=== PATIENT | female | born 1935 | race Two or more races ===

== ENCOUNTER 2017-09-22 10:49 | Inpatient (IN) | payer OTHER ==
[~2017-09-22] VITALS: Ht 170.2 cm; Wt 81.6 kg
[~2017-09-22 10:49] MED LIST: CARDURA1 MG; CARdura 2MG TABLET PO; CEFTIN250 MG/5 M PO; CEFUROXIME500 MG PO; CLONAZEPAM0.125 MG/T; COZAAR100 MG PO; FUROSEMIDE10 MG/M1 IV; FUROSEMIDE40 MG PO; HYZAAR 100/25 T1 TAB; ISORDIL10 MG; ISORDIL10 MG PO; LASIX20 MG; METOPROLOL ER-1 EACH; NEURONTIN300 MG PO; ORASEP SPRAY30 ML MM; ORPH100T PO; PANTOPRAZOLE SO40 MG PO; PRADAXA150 MG; PROTONIX20 MG; SEROQUEL25 MG PO; SPIRONOLACTONE25 MG PO; Synthroid PO; TOPROL XL25 M1 PO; ZOCOR 10 MG PO; ZOCOR5 MG
== END 2017-09-26 19:08 | disposition home or self-care (01) | DRG 683 ==
LOC: ER 10:49 → MEDI 19:41
PROC: BW28ZZZ Computerized Tomography (CT Scan) of Head (ICD-10-PCS; 2017-09-22)
PROC: 30233N1 Transfusion of Nonautologous Red Blood Cells into Peripheral Vein, Percutaneous Approach (ICD-10-PCS; principal; 2017-09-23)
PROC: B030ZZZ Magnetic Resonance Imaging (MRI) of Brain (ICD-10-PCS; 2017-09-23)
PROC: 4A00X4Z Measurement of Central Nervous Electrical Activity, External Approach (ICD-10-PCS; 2017-09-24)
DX: N17.8 Other acute kidney failure (principal); N39.0 Urinary tract infection, site not specified; I50.30 Unspecified diastolic (congestive) heart failure; I13.0 Hypertensive heart and chronic kidney disease with heart failure and stage 1 through stage 4 chronic kidney disease, or unspecified chronic kidney disease; E86.0 Dehydration; I27.29 Other secondary pulmonary hypertension; G25.2 Other specified forms of tremor; E11.22 Type 2 diabetes mellitus with diabetic chronic kidney disease; N18.1 Chronic kidney disease, stage 1; I48.0 Paroxysmal atrial fibrillation; R13.19 Other dysphagia; Z95.1 Presence of aortocoronary bypass graft; I25.2 Old myocardial infarction; D63.1 Anemia in chronic kidney disease; D69.59 Other secondary thrombocytopenia
CPT/HCPCS: 70544

== ENCOUNTER 2017-11-25 19:06 | Inpatient (IN) | payer OTHER ==
[~2017-11-25] VITALS: Ht 170.2 cm; Wt 81.6 kg
== END 2017-12-08 20:04 | disposition home or self-care (01) | DRG 871 ==
LOC: ER 19:06 → SEC-K 11-26 19:35 → SURH 11-28 03:18
DX: A41.51 Sepsis due to Escherichia coli [E. coli] (principal); I50.23 Acute on chronic systolic (congestive) heart failure; N39.0 Urinary tract infection, site not specified; I85.10 Secondary esophageal varices without bleeding; N17.8 Other acute kidney failure; B17.8 Other specified acute viral hepatitis; I48.0 Paroxysmal atrial fibrillation; E87.5 Hyperkalemia; Z95.1 Presence of aortocoronary bypass graft; Z74.01 Bed confinement status; I27.29 Other secondary pulmonary hypertension; I11.0 Hypertensive heart disease with heart failure

== ENCOUNTER 2018-05-03 10:30 | Emergency (ER) | payer OTHER ==
[~2018-05-03] VITALS: Ht 172.7 cm; Wt 90.7 kg
== END 2018-05-03 14:43 | disposition home or self-care (01) ==
LOC: ER 10:30
DX: S00.512A Abrasion of oral cavity, initial encounter (principal); K14.8 Other diseases of tongue; K76.89 Other specified diseases of liver; X58.XXXA Exposure to other specified factors, initial encounter; Y93.89 Activity, other specified; Y92.89 Other specified places as the place of occurrence of the external cause; Y99.8 Other external cause status

== ENCOUNTER 2018-10-09 10:54 | Emergency (ER) | payer OTHER ==
[~2018-10-09] VITALS: Ht 170.2 cm; Wt 93.4 kg
[2018-10-09] MEDS ORDERED: LACTULOSE20 GM/30 M PO (16:40)
[2018-10-09] MEDS ORDERED: KEFLEX500 MG PO (16:40)
[2018-10-09] MEDS ORDERED: CLOTRIMAZOLE15 GM TOP (16:40)
== END 2018-10-09 17:35 | disposition home or self-care (01) ==
LOC: ER 10:54
DX: L03.116 Cellulitis of left lower limb (principal); B35.4 Tinea corporis; R82.79 Other abnormal findings on microbiological examination of urine

== ENCOUNTER 2018-12-18 10:41 | Emergency (ER) | payer OTHER ==
[~2018-12-18] VITALS: Ht 172.7 cm; Wt 98.9 kg
[~2018-12-18 10:41] MED LIST changes: +CLOTRIMAZOLE15 GM TOP; +KEFLEX500 MG PO; +LACTULOSE20 GM/30 M PO
[2018-12-18] MEDS ORDERED: CELEBREX100 MG PO (17:39)
[2018-12-18] MEDS ORDERED: ULTRACET PO (17:39)
== END 2018-12-18 18:06 | disposition home or self-care (01) ==
LOC: ER 10:41
DX: S22.41XA Multiple fractures of ribs, right side, initial encounter for closed fracture (principal); S00.03XA Contusion of scalp, initial encounter; S40.011A Contusion of right shoulder, initial encounter; S19.89XA Other specified injuries of other specified part of neck, initial encounter; W18.09XA Striking against other object with subsequent fall, initial encounter; Y93.89 Activity, other specified; Y92.098 Other place in other non-institutional residence as the place of occurrence of the external cause; Y99.8 Other external cause status

== ENCOUNTER 2019-04-23 13:32 | Inpatient (IN) | payer OTHER ==
[~2019-04-23] VITALS: Ht 162.6 cm; Wt 90.7 kg
[~2019-04-23 13:32] MED LIST changes: +CELEBREX100 MG PO; +ULTRACET PO
[2019-04-23] MEDS ORDERED: COZAAR25 MG (13:47)
[2019-04-24] MEDS ORDERED: ELIQUIS2.5 MG PO (10:48)
[2019-04-24] MEDS ORDERED: ALDACTONE25 MG PO (10:49)
[2019-04-24] MEDS ORDERED: INDERAL LA80 MG PO (10:50)
[2019-04-24] MEDS ORDERED: COZAAR100 MG PO (10:52)
[2019-04-24] MEDS ORDERED: ISORDIL10 MG PO (10:52)
[2019-04-24] MEDS ORDERED: DOXAZOSIN MESYLA2 MG PO (10:53)
[2019-04-24] MEDS ORDERED: ZOCOR20 MG PO (10:53)
[2019-04-24] MEDS ORDERED: LEVOTHYROXINE25 MCG PO (10:54)
[2019-04-24] MEDS ORDERED: LASIX40 MG PO (10:54)
[2019-04-24] MEDS ORDERED: PROTONIX40 MG PO (10:55)
[2019-04-24] MEDS ORDERED: SEROQUEL25 MG PO (10:55)
[2019-04-24] MEDS ORDERED: CLONAZEPAM0.5 M1 (10:56)
[2019-04-24] MEDS ORDERED: PROCRIT20000 UNIT IM (10:56)
[2019-04-24] MEDS ORDERED: PNEU16DI2 (10:56)
== END 2019-05-01 15:20 | disposition home or self-care (01) | DRG 292 ==
LOC: ER 13:32 → ICU-2 04-24 11:28 → ICU 04-24 11:28 → MEDJ 04-26 20:06
PROVIDERS: ADMIT Specialist
PROC: B246ZZZ Ultrasonography of Right and Left Heart (ICD-10-PCS; principal; 2019-04-24)
PROC: 0T9B70Z Drainage of Bladder with Drainage Device, Via Natural or Artificial Opening (ICD-10-PCS; 2019-04-24)
PROC: BW40ZZZ Ultrasonography of Abdomen (ICD-10-PCS; 2019-04-25)
PROC: 4A12X4Z Monitoring of Cardiac Electrical Activity, External Approach (ICD-10-PCS; 2019-04-26)
DX: I11.0 Hypertensive heart disease with heart failure (principal); N17.8 Other acute kidney failure; D68.318 Other hemorrhagic disorder due to intrinsic circulating anticoagulants, antibodies, or inhibitors; L03.116 Cellulitis of left lower limb; J90 Pleural effusion, not elsewhere classified; I50.22 Chronic systolic (congestive) heart failure; E11.22 Type 2 diabetes mellitus with diabetic chronic kidney disease; I13.0 Hypertensive heart and chronic kidney disease with heart failure and stage 1 through stage 4 chronic kidney disease, or unspecified chronic kidney disease; N18.3 Chronic kidney disease, stage 3 (moderate); E03.8 Other specified hypothyroidism; I25.10 Atherosclerotic heart disease of native coronary artery without angina pectoris; E66.09 Other obesity due to excess calories; E87.5 Hyperkalemia; I48.2 Chronic atrial fibrillation; N39.8 Other specified disorders of urinary system; Z79.4 Long term (current) use of insulin; Z79.01 Long term (current) use of anticoagulants; B35.4 Tinea corporis; K76.89 Other specified diseases of liver

== ENCOUNTER 2019-05-08 17:12 | Inpatient (IN) | payer OTHER ==
[~2019-05-08] VITALS: Ht 170.2 cm; Wt 90.7 kg
[~2019-05-08 17:12] MED LIST changes: +ALDACTONE25 MG PO; +CLONAZEPAM0.5 M1; +COZAAR25 MG; +DOXAZOSIN MESYLA2 MG PO; +ELIQUIS2.5 MG PO; +INDERAL LA80 MG PO; +LASIX40 MG PO; +LEVOTHYROXINE25 MCG PO; +PNEU16DI2; +PROCRIT20000 UNIT IM; +PROTONIX40 MG PO; +ZOCOR20 MG PO
== END 2019-06-18 23:13 | disposition expired | DRG 189 ==
LOC: ER 17:12 → MEDJ 22:39
PROVIDERS: ADMIT Specialist
PROC: BW28ZZZ Computerized Tomography (CT Scan) of Head (ICD-10-PCS; 2019-05-08)
PROC: 4A033R1 Measurement of Arterial Saturation, Peripheral, Percutaneous Approach (ICD-10-PCS; 2019-05-08)
PROC: 0T9B70Z Drainage of Bladder with Drainage Device, Via Natural or Artificial Opening (ICD-10-PCS; 2019-05-08)
PROC: 4A12X4Z Monitoring of Cardiac Electrical Activity, External Approach (ICD-10-PCS; 2019-05-08)
PROC: 02HV33Z Insertion of Infusion Device into Superior Vena Cava, Percutaneous Approach (ICD-10-PCS; 2019-05-08)
PROC: 3E0F7GC Introduction of Other Therapeutic Substance into Respiratory Tract, Via Natural or Artificial Opening (ICD-10-PCS; 2019-05-09)
PROC: 5A09457 Assistance with Respiratory Ventilation, 24-96 Consecutive Hours, Continuous Positive Airway Pressure (ICD-10-PCS; 2019-05-09)
PROC: BT4JZZZ Ultrasonography of Kidneys and Bladder (ICD-10-PCS; 2019-05-09)
PROC: B246ZZZ Ultrasonography of Right and Left Heart (ICD-10-PCS; 2019-05-11)
PROC: 30233N1 Transfusion of Nonautologous Red Blood Cells into Peripheral Vein, Percutaneous Approach (ICD-10-PCS; 2019-05-11)
PROC: 0W9930Z Drainage of Right Pleural Cavity with Drainage Device, Percutaneous Approach (ICD-10-PCS; principal; 2019-05-21)
DX: J96.02 Acute respiratory failure with hypercapnia (principal); I50.33 Acute on chronic diastolic (congestive) heart failure; G93.41 Metabolic encephalopathy; A41.89 Other specified sepsis; I50.23 Acute on chronic systolic (congestive) heart failure; N39.0 Urinary tract infection, site not specified; I13.0 Hypertensive heart and chronic kidney disease with heart failure and stage 1 through stage 4 chronic kidney disease, or unspecified chronic kidney disease; D68.318 Other hemorrhagic disorder due to intrinsic circulating anticoagulants, antibodies, or inhibitors; J90 Pleural effusion, not elsewhere classified; N17.8 Other acute kidney failure; N18.4 Chronic kidney disease, stage 4 (severe); D68.4 Acquired coagulation factor deficiency; E87.2 Acidosis; I47.2 Ventricular tachycardia; J98.11 Atelectasis; N04.9 Nephrotic syndrome with unspecified morphologic changes; L03.116 Cellulitis of left lower limb; J96.01 Acute respiratory failure with hypoxia; I11.0 Hypertensive heart disease with heart failure; I48.2 Chronic atrial fibrillation; I08.3 Combined rheumatic disorders of mitral, aortic and tricuspid valves; E11.22 Type 2 diabetes mellitus with diabetic chronic kidney disease; K76.1 Chronic passive congestion of liver; R57.0 Cardiogenic shock; E87.5 Hyperkalemia; E87.6 Hypokalemia; R60.1 Generalized edema; R31.0 Gross hematuria; B96.1 Klebsiella pneumoniae [K. pneumoniae] as the cause of diseases classified elsewhere; B35.4 Tinea corporis; Z66 Do not resuscitate; Z79.4 Long term (current) use of insulin; Z88.8 Allergy status to other drugs, medicaments and biological substances; Z95.1 Presence of aortocoronary bypass graft; Z88.2 Allergy status to sulfonamides; Z79.01 Long term (current) use of anticoagulants; Z74.01 Bed confinement status